=== PATIENT | male | born 1975 | race Caucasian/White ===

== ENCOUNTER 2017-08-01 11:55 | Emergency (ER) | payer OTHER ==
[2017-08-01 12:02] VITALS: TEMP 97.7
[2017-08-01] MEDS ORDERED: Lidocaine 5% Patch TD STA (12:50)
[2017-08-01] MEDS ORDERED: Lidocaine 5% Patch TD ONE (12:55)
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
--- NOTE | 2017-08-01 14:48 | CT ---
PROCEDURE: CT Cervical Spine without contrast HISTORY: Trauma COMPARISON: Cervical spine series dated 04/29/2013. TECHNIQUE: Axial computed tomography images were obtained of the cervical spine without the use of intravenous contrast. Coronal and sagittal reformatted images were created and reviewed. Radiation dose: Total exam DLP = 486.64 mGy-cm. This CT exam was performed using one or more of the following dose reduction techniques: Automated exposure control, adjustment of the mA and/or kV according to patient size, and/or use of iterative reconstruction technique. FINDINGS: VERTEBRAE: No fracture. No destructive bony lesion. There straightening of the cervical curvature, though not dramatically changed from minimal curvature remaining identified in lateral view of cervical spine dated 04/29/2013. DISCS/SPINAL CANAL/NEURAL FORAMINA: No significant central canal or neural foraminal stenosis. Discs heights are grossly preserved. Minimal disc bulging is seen at C3-4 without stenosis. PARASPINAL SOFT TISSUES: Unremarkable. OTHER FINDINGS: None. IMPRESSION: Straightened cervical curvature without fracture or spondylolisthesis identified. No definitive spinal stenosis identified. MRI can be utilized for greater characterization if clinically warranted. Minimal disc bulging C3-4 without stenosis.
[2017-08-01 15:06] VITALS: BP 124/72; PULSE 71; RESP 18; O2SAT 98
== END 2017-08-01 15:06 | disposition home or self-care (01) ==
LOC: C.ER 11:55
DX: S13.9XXA Sprain of joints and ligaments of unspecified parts of neck, initial encounter (principal); V89.2XXA Person injured in unspecified motor-vehicle accident, traffic, initial encounter
CPT/HCPCS: 72125; 96372; 99284; J1885

== ENCOUNTER 2018-01-18 09:41 | Emergency (ER) | payer OTHER ==
[2018-01-18 10:01] VITALS: BP 125/77; PULSE 69; RESP 18; TEMP 98; O2SAT 97
[2018-01-18] MEDS ORDERED: Lidocaine 5% Patch TD STA (13:43)
[2018-01-18] MEDS ORDERED: Lidocaine 5% Patch TD ONE (13:50)
--- NOTE | 2018-01-18 13:53 | MRI ---
PROCEDURE: MRI Left Shoulder TECHNIQUE: Multiecho multiplanar sequences were performed through the left shoulder. No intravenous contrast. HISTORY: Pain. COMPARISON: None. FINDINGS: SUPRASPINATUS TENDON: Mildly inhomogeneous signal seen the distal supraspinatus tendon compatible with tendinosis. No definite acute tear appreciated. Trace fluid is seen in the sub deltoid bursa compatible limited bursitis. INFRASPINATUS TENDON: Intact without tear. TERES MINOR TENDON: Intact without tear. SUBSCAPULARIS TENDON: No evidence of tear. PROXIMAL PORTION OF THE LONG HEAD OF THE BICEPS TENDON: No evidence of tear. GLENOID LABRUM: No tear demonstrated. JOINT EFFUSION: Physiologic fluid is seen in the glenohumeral joint. ACROMIOCLAVICULAR JOINT SPACE: There is no evidence of an acromioclavicular joint separation however edema is seen at the distal clavicle and minimally at the proximal acromion as well as within the acromioclavicular ligament suggesting partial tear or sprain of the ligament. Degenerative sclerosis of the distal clavicle and proximal acromion is appreciated and edema may be related to degenerative change or possible contusions. OSSEOUS STRUCTURES: No fracture identified or destructive bony lesion. AC joint contusions are discussed above. OTHER FINDINGS: None. IMPRESSION: 1. Partial tear or sprain of the acromioclavicular ligament is suspected with limited contusions related to the distal clavicle and proximal acromion versus degenerative edema. 2. Trace subdeltoid bursitis. Tendinosis distal supraspinatus tendon without acute tear appreciable.
--- NOTE | 2018-01-18 13:56 | C.PDOC ---
History Of Present Illness 42 year old male, who is a [employer] employee, presents to the ED for evaluation of left shoulder and left wrist pain which began after he slipped in the snow and landed onto his outstretched left arm 3 days ago. Patient reports pain with movement. He denies head injury, loss of consciousness, and has no other complaints at this time. Time Seen by Provider: 01/18/18 10:13 Chief Complaint (Nursing): Upper Extremity Problem/Injury History Per: Patient History/Exam Limitations: no limitations Onset/Duration Of Symptoms: Days (3) Current Symptoms Are (Timing): Still Present Quality: "Pain" Exacerbating Factor(s): Movement Additional History Per: Patient Past Medical History Reviewed: Historical Data, Nursing Documentation, Vital Signs Vital Signs: Last Vital Signs Temp 98 F 01/18/18 09:44 Pulse 69 01/18/18 09:44 Resp 18 01/18/18 09:44 BP 125/77 01/18/18 09:44 Pulse Ox 97 01/18/18 14:12 - Medical History PMH: Back Problems (spinal disc fusion) Denies: Chronic Kidney Disease Surgical History: No Surg Hx Family History: States: Unknown Family Hx - Social History Hx Tobacco Use: No Hx Alcohol Use: No Hx Substance Use: No - Immunization History Hx Tetanus Toxoid Vaccination: Yes Hx Influenza Vaccination: Yes Hx Pneumococcal Vaccination: No Review Of Systems Musculoskeletal: Positive for: Shoulder Pain (left), Other (left shoulder pain ) Neurological: Negative for: Other (head injury, LOC ) Physical Exam - Physical Exam Appears: Non-toxic, No Acute Distress Skin: Normal Color, Warm, Dry, No Ecchymosis Extremity: No Normal ROM (decreased, with flexion and extension of left upper extremity ), Tenderness (minimal, to anterior aspect of left shoulder ), Capillary Refill (less than 2 seconds ), No Swelling Pulses: Left Radial: Normal Neurological/Psych: Oriented x3, Normal Speech, Normal Cognition, Normal Sensation ED Course And Treatment O2 Sat by Pulse Oximetry: 97 (on RA) Pulse Ox Interpretation: Normal Medical Decision Making Medical Decision Making: Impression: 42 y/o male with left shoulder and left wrist pain s/p fall Plan: * left shoulder MRI * Lidoderm TD * Motrin PO * Tylenol PO * reassess and disposition Progress: Left shoulder MRI ordered. Results are pending. Lidoderm TD, Motrin PO, Tylenol PO administered. On reassessment, patient is resting comfortably, showing no signs of distress and reports minimal improvement in symptoms after taking pain medication. Patient is stable for discharge with prescription for pain medication and copy of MRI disc. He is advised to follow up with his personal orthopedist within 1- 2 days for further evaluation. Disposition Counseled Patient/Family Regarding: Studies Performed, Diagnosis, Need For Followup, Rx Given - Disposition Disposition: HOME/ ROUTINE Disposition Time: 13:53 Condition: STABLE Additional Instructions: Follow up with your orthopedist. Take the medications as indicated. Rest and ice your shoulder. Prescriptions: Ibuprofen [Motrin] 600 mg PO TID #15 tab traMADol/Acetaminophen [Ultracet 37.5/325 mg] 1 tab PO TID PRN #15 tab PRN Reason: pain Instructions: Shoulder Sprain (DC) Forms: General Discharge Instructions, [facility] (Guatemalan), Work Excuse - POA Present On Arrival: None - Clinical Impression Clinical Impression: Sprain of left shoulder - Scribe Statement The provider has reviewed the documentation as recorded by the Scribe (Isha Díaz) Provider Attestation: All medical record entries made by the Scribe were at my direction and personally dictated by me. I have reviewed the chart and agree that the record accurately reflects my personal performance of the history, physical exam, medical decision making, and the department course for this patient. I have also personally directed, reviewed, and agree with the discharge instructions and disposition.
== END 2018-01-18 14:00 | disposition home or self-care (01) ==
LOC: C.ER 09:41
DX: S43.402A Unspecified sprain of left shoulder joint, initial encounter (principal); W00.0XXA Fall on same level due to ice and snow, initial encounter